=== PATIENT | male | born 1985 | race Caucasian/White ===

== ENCOUNTER 2023-10-31 10:32 | Emergency (ER) | payer BC ==
[2023-10-31] MEDS ORDERED: Sodium Chloride 0.9% 10 ML Syringe FLUSH PRN (10:52)
[2023-10-31 11:30] LABS: BASOPHILS PERCENT AUTO 0.5 % (0.3-3.8); EOSINOPHILS ABSOLUTE AUTO 0.7 x10-3/uL (0.0-0.6); EOSINOPHILS PERCENT AUTO 7.3 % (0.1-6.8); HEMOGLOBIN 14.8 g/dL (12.9-17.7); LYMPHOCYTES ABSOLUTE AUTO 1.4 x10-3/uL (0.5-4.5); LYMPHOCYTES PERCENT AUTO 15.3 % (15.8-45.3); MEAN CORPUSCULAR HEMOGLOBIN 30.3 pg (27.0-33.3); MEAN CORPUSCULAR HGB CONC 35.1 g/dL (28.7-35.3); MEAN CORPUSCULAR VOLUME 86.5 fL (80.8-98.7); MEAN PLATELET VOLUME 9.3 fL (6.7-11.0); MONOCYTES ABSOLUTE AUTO 0.6 x10-3/uL (0.0-1.2); MONOCYTES PERCENT AUTO 6.8 % (5.5-15.2); NEUTROPHILS ABSOLUTE AUTO 6.2 x10-3/uL (1.7-6.9); NEUTROPHILS PERCENT AUTO 70.1 % (40.3-71.8); PLATELET COUNT,PLT 190 x10(3)uL (117-477); RED BLOOD CELL COUNT 4.86 x10(6)uL (3.90-5.90); RED CELL DISTRIBUTION WIDTH 14.1 % (12.4-15.0); WHITE BLOOD CELL COUNT,WBC 8.9 x10-3/uL (3.2-10.1)
[2023-10-31 11:38] LABS: BLOOD UREA NITROGEN,BUN 9 mg/dL (7-18); BUN/CREATININE RATIO 8.2 (9-20); CALCIUM 8.5 mg/dL (8.6-10.2); CARBON DIOXIDE,CO2 27 mmol/L (21-32); CHLORIDE,CL 104 mmol/L (100-110); CREATININE 1.1 mg/dL (0.70-1.30); EST CRCL DRUG DOSING (CG) 104.92 mL/min; ESTIMATED GFR 89 mL/min (>60); GLUCOSE RANDOM 92 mg/dL (80-116); POTASSIUM,K 4.1 mmol/L (3.5-5.3); SODIUM,NA 142 mmol/L (135-145)
[2023-10-31 11:44] LABS: A/G RATIO 1.2; ALANINE AMINOTRANSFERASE,ALT 33 U/L (12-36); ALBUMIN 3.8 g/dL (3.5-5.2); ALKALINE PHOSPHATASE 100 IU/L (56-112); ASPARTATE AMNIOTRANSFERASE,AST 16 IU/L (5-25); PROTEIN TOTAL,TP 6.9 g/dL (6.0-8.0); TROPONIN I 6.6 pg/mL (4.0-60.3)
[2023-10-31 11:49] LABS: PRO B-TYPE NATRIUR PEPT,BNPPRO < 5 pg/mL (<=125)
[2023-10-31 12:04] LABS: D-DIMER QUANTITATIVE 0.3 mg/LFEU (0.0-0.59); INR 0.96 (1.00-1.24); PTT,PARTIAL THROMBOPLSTIN TIME 26.5 SECONDS (24.4-33.2)
[2023-10-31 12:21] LABS: BILIRUBIN DIRECT 0.25 mg/dL (0.10-0.20); BILIRUBIN INDIRECT 1.9 mg/dL (0.0-1.0); BILIRUBIN TOTAL 2.1 mg/dL (0.1-1.3)
== END 2023-10-31 12:33 | disposition home or self-care (01) ==
LOC: FB.ED 10:32
DX: R07.81 Pleurodynia (principal); E80.6 Other disorders of bilirubin metabolism
CPT/HCPCS: 36415; 71045; 80053; 82247; 82248; 83880; 84484; 85025; 85379; 85610; 85730; 93005; 99285